=== PATIENT | male | born 1960 ===

== ENCOUNTER 2021-01-07 11:35 | Emergency (ER) | payer BC ==
[2021-01-07] MEDS ORDERED: Diphtheria,Pertussis(Acell),Tetanus Vaccine 0.5 ML Syringe IM ONE (12:29)
--- NOTE | 2021-01-07 12:56 | CR ---
INDICATION: Laceration and soft of the right thumb . Comparison: None. TECHNIQUE: Three-view study right thumb. FINDINGS: Laceration with multiple bone fragments identified involving the tuft of the terminal phalanx of the right thumb. No other abnormalities are identified. IMPRESSION: Multiple small bone fragments identified involving the tuft of the terminal phalanx of the right thumb with laceration. Dictated by Christine Rothman MD @ 01/07/2021 12:55:[address] Christine Rothman @ Jan 07 2021 12:55PM
[2021-01-07] MEDS ORDERED: Bupivacaine 0.5% 10 ML SDV INJECT ONE (13:43)
[2021-01-07] MEDS ORDERED: ceFAZolin 2 GM in Premix Bag 1 BAG IV ONE (13:55)
--- NOTE | 2021-01-07 14:20 | EDM.PDOC ---
ED HPI GENERAL MEDICAL PROBLEM - General Chief Complaint: Laceration Stated Complaint: CUT OFF RT HAND TIP OF THUMB Time Seen by Provider: 01/07/21 11:36 Source of Information: Reports: Patient History Limitations: Reports: No Limitations - History of Present Illness INITIAL COMMENTS - FREE TEXT/NARRATIVE: HISTORY AND PHYSICAL: History of present illness: Patient is a 60-year-old male who presents emergency room today with concern of right thumb injury that occurred just prior to arrival to the emergency room. Patient states that he was working with a piece of equipment at work when a heavy piece of metal fell off of the equipment and hit his right thumb. Patient states that the nail is completely gone and he was unable to find any of the tissue. Patient states he is unsure of his last tetanus update but would like to update this today. Patient denies any other symptoms or concerns. Patient denies fever, chills, chest pain, shortness of breath, or cough. Denies headache, neck stiff ness, change in vision, syncope, or near syncope. Denies nausea, vomiting, abdominal pain, diarrhea, constipation, or dysuria. Has not noted any blood in urine or stool. Patient has been eating and drinking appropriately. Review of systems: As per history of present illness and below otherwise all systems reviewed and negative. Past medical history: As per history of present illness and as reviewed below otherwise noncontributory. Surgical history: As per history of present illness and as reviewed below otherwise noncontributory. Social history: See social history for further information Family history: As per history of present illness and as reviewed below otherwise noncontributory. Physical exam: General: Patient is alert, oriented, and in no acute distress. Patient sitting comfortably on exam table. Vitals stable and reviewed by me. HEENT: Atraumatic, normocephalic, pupils equal and reactive bilaterally, negative for conjunctival pallor or scleral icterus, mucous membranes moist, TMs normal bilaterally, throat clear, neck supple, nontender, trachea midline. No drooling or trismus noted. No meningeal signs. No hot potato voice noted. Lungs: Clear to auscultation, breath sounds equal bilaterally, chest nontender. Heart: S1S2, regular rate and rhythm without overt murmur Abdomen: Soft, nondistended, nontender. Negative for masses or hepatospl enomegaly. Negative for costovertebral tenderness. Pelvis: Stable nontender. Genitourinary: Deferred. Rectal: Deferred. Skin: Intact, warm, dry. No lesions or rashes noted. Extremities: The nail of the right thumb is completely avulsed with macerated underlying tissue and an area of exposed bone 3-4mm exposed without any tissue available to cover the exposed bone. Patient does have limited ROM of the interphalangeal joint of the affected thumb but full ROM of remainder of RUE without deficit. Radial pulses grossly intact of the right upper extremity with capillary refill less than 2 seconds. Otherwise, atraumatic, negative for cords or calf pain. Neurovascular unremarkable. Neuro: Awake, alert, oriented. Cranial nerves II through XII unremarkable. Cerebellum unremarkable. Motor and sensory unremarkable throughout. Exam nonfocal. Notes: Patient is a 60-year-old male who presents emergency room today with concern of right thumb injury that occurred just prior to arrival to the emergency room. Upon arrival to the ED, patient is vitally stable and well-appearing on exam but is noted to have a completely avulsed nail of the right hand thumb with macerated surrounding tissue and an area of 3 mm of exposed bone. There is no surrounding tissue to cover the exposed bone. Patient does have limited range of motion of the interphalangeal joint of the affected thumb, unsure if this is due to pain or true deficit at this time. Patient otherwise has full range of motion of the complete right upper extremity neurovascularly intact. The area was cleansed with 500 cc of normal saline, and chlorhexidine solution. Sterile bulky dressing was applied by nursing staff. Patient's tetanus was updated and received 2 g of Ancef today in the emergency room. I did call and speak to the hand specialist on-call for [facility], Dr. Latif, and thoroughly discussed patient's case. He would like patient to be transferred to the emergency room. I did speak to Dr. Bejarano, emergency room provider, who is accepting of transfer. Patient would like to transfer via private vehicle. EMS transfer was offered to patient but he declines. All risks versus benefits discussed with patient and expresses understanding. Strict return precautions thoroughly discussed with patient. Discussed going directly to the emergency room at [facility] in [place] following discharge from the emergency room and to not eat or drink until he has seen Dr. Latif. Voices understanding and is agreeable to plan of care. Denies any further questions or concerns at this time. Diagnostics: Hand x-ray Therapeutics: Tdap, 2 g Ancef IV Prescription: None Impression: Open tuft fracture, right first digit Plan: Go straight to [facility] Emergency Room following discharge from ED. Do not eat or drink until you have seen the hand specialist Definitive disposition and diagnosis as appropriate pending reevaluation and review of above. Right Finger-Thumb Pain Score (Numeric/FACES): 5 - Related Data Allergies Allergy/AdvReac Type Severity Reaction Status Date / Time No Known Allergies Allergy Verified 05/22/19 13:36 Home Meds: Home Meds Glimepiride 2 mg PO BIDMEALS 05/19/14 [History] Pioglitazone HCl 45 mg PO DAILY 05/19/14 [History] Simvastatin [Zocor] 40 mg PO BEDTIME 05/19/14 [History] amLODIPine [Norvasc] 5 mg PO QAM 05/19/14 [History] Aspirin [Adult Low Dose Aspirin EC] 81 mg PO DAILY 05/15/19 [History] Insulin Degludec [Tresiba] 12 unit SQ QAM 05/15/19 [History] Lisinopril/Hydrochlorothiazide [Lisinopril-Hctz 20-25 mg Tab] 1 tab PO QAM 05/15/19 [History] sitaGLIPtin Phos/Metformin HCl [Janumet 50-1,000 MG] 1 tab PO BID 05/15/19 [History] Past Medical History HEENT History: Reports: Hard of Hearing, Other (See Below) Other HEENT History: uses reading glassinterclick, has right hearing aide Cardiovascular History: Reports: High Cholesterol, Hypertension Respiratory History: Reports: None Gastrointestinal History: Reports: None Genitourinary History: Reports: None Musculoskeletal History: Reports: Fracture, Osteoarthritis Other Musculoskeletal History: hx of fx arm and fingers, arthritis of knees Neurological History: Reports: None Psychiatric History: Reports: None Endocrine/Metabolic History: Reports: Diabetes, Type II, IDDM Hematologic History: Reports: None Dermatologic History: Reports: None - Infectious Disease History Infectious Disease History: Reports: Chicken Pox - Past Surgical History Head Surgeries/Procedures: Reports: None HEENT Surgical History: Reports: Oral Surgery, Tonsillectomy Other HEENT Surgeries/Procedures: has one upper dental implant GI Surgical History: Reports: Colonoscopy Musculoskeletal Surgical History: Reports: Arthroscopic Knee Social & Family History - Family History Family Medical History: Unobtainable - Tobacco Use Tobacco Use Status *Q: Never Tobacco User - Caffeine Use Caffeine Use: Reports: None - Recreational Drug Use Recreational Drug Use: No ED ROS GENERAL - Review of Systems Review Of Systems: Comprehensive ROS is negative, except as noted in HPI. ED EXAM, SKIN/RASH Exam: See Below (see dictation) Course - Vital Signs Last Recorded V/S: Last Vital Signs Temp 97.6 F 01/07/21 12:03 Pulse 76 01/07/21 12:03 Resp 18 01/07/21 12:03 BP 145/85 H 01/07/21 12:03 Pulse Ox 97 01/07/21 12:03 - Orders/Labs/Meds Orders: Active Orders 24 hr Category Date Time Status Vaccines to be Administered [RC] PER UNIT ROUTINE Care 01/07/21 12:29 Active ceFAZolin [Ancef 2 GM/50 ML] 2 gm Med 01/07/21 13:55 Active Premix Bag 1 bag IV ONETIME Medication Orders Cefazolin Sodium/Dextrose 2 gm (/ Premix) 50 mls @ 100 mls/hr IV ONETIME ONE Stop: 01/07/21 14:24 Meds: Medications Generic Name Dose Route Start Last Admin Trade Name Freq PRN Reason Stop Dose Admin Cefazolin Sodium/Dextrose 2 gm 50 mls @ 100 mls/hr 01/07/21 13:55 / Premix IV 01/07/21 14:24 ONETIME ONE Discontinued Medications Generic Name Dose Route Start Last Admin Trade Name Freq PRN Reason Stop Dose Admin Bupivacaine HCl 10 ml 01/07/21 13:43 Bupivacaine 0.5% 10 Ml Sdv INJECT 01/07/21 13:44 ONETIME ONE Diphtheria/Tetanus/Acell Pertussis 0.5 ml 01/07/21 12:29 01/07/21 12:43 Diphtheria,Pertussis(Acell),Tetanus Vaccine 0.5 Ml Syringe IM 01/07/21 12:30 0.5 ml .ONCE ONE Administration Lidocaine HCl 5 ml 01/07/21 12:27 01/07/21 12:43 Lidocaine 1% 5 Ml Sdv INJECT 01/07/21 12:28 5 ml ONETIME ONE Administration Departure - Departure Time of Disposition: 14:18 Disposition: DC/Tfer to Acute Hospital 02 Clinical Impression: Open fracture of tuft of distal phalanx of right thumb - Discharge Information Referrals: Jose Alfredo Cadet MD [Primary Care Provider] - Forms: ED Department Discharge Additional Instructions: Go straight to [facility] Emergency Room following discharge from ED. Do not eat or drink until you have seen the hand specialist [facility]: Emergency Department [address], [place] [address] Sepsis Event Note (ED) - Focused Exam Vital Signs: Vital Signs Temp Pulse Resp BP Pulse Ox 01/07/21 12:03 97.6 F 76 18 145/85 H 97 - My Orders Last 24 Hours: My Active Orders 01/07/21 12:29 Vaccines to be Administered [RC] PER UNIT ROUTINE 01/07/21 13:55 ceFAZolin [Ancef 2 GM/50 ML] 2 gm Premix Bag 1 bag IV ONETIME - Assessment/Plan Last 24 Hours: My Active Orders 01/07/21 12:29 Vaccines to be Administered [RC] PER UNIT ROUTINE 01/07/21 13:55 ceFAZolin [Ancef 2 GM/50 ML] 2 gm Premix Bag 1 bag IV ONETIME
[2021-01-07 14:56] VITALS: BP 152/96; PULSE 71
== END 2021-01-07 15:30 ==
LOC: MW.ED 11:35
DX: S62.521B Displaced fracture of distal phalanx of right thumb, initial encounter for open fracture (principal); E78.00 Pure hypercholesterolemia, unspecified; I10 Essential (primary) hypertension; M19.90 Unspecified osteoarthritis, unspecified site; E11.9 Type 2 diabetes mellitus without complications; Z23 Encounter for immunization; Z79.82 Long term (current) use of aspirin; Z79.4 Long term (current) use of insulin; Z79.899 Other long term (current) drug therapy; W20.8XXA Other cause of strike by thrown, projected or falling object, initial encounter; Y92.89 Other specified places as the place of occurrence of the external cause; Y99.0 Civilian activity done for income or pay
CPT/HCPCS: 73140; 82947; 90471; 90715; 96365; 99284; J0690; J3490

== ENCOUNTER 2021-01-10 15:10 | Observation (INO) | payer BC ==
[2021-01-10 16:19] LABS: BLOOD UREA NITROGEN,BUN 20 mg/dL (7.0-18.0); CARBON DIOXIDE,CO2 27.6 mmol/L (21.0-32.0); CHLORIDE,CL 96 mmol/L (98-107); GLUCOSE RANDOM 351 mg/dL (74-106); POTASSIUM,K 4.5 mmol/L (3.5-5.1); SODIUM,NA 133 mmol/L (136-148)
--- NOTE | 2021-01-10 16:27 | CT ---
INDICATION: Left-sided paresthesias. Ataxia. TECHNIQUE: Noncontrast axial images. Sagittal and coronal reconstructions. COMPARISON: None. FINDINGS: There is no abnormal intracranial mass effect or midline shift. No acute intracranial hemorrhage. Mild scattered subcortical white matter changes are likely the sequela chronic small vessel disease. No appreciable loss of the normal blankenship-white matter differentiation. CSF spaces are age-appropriate. No acute osseous abnormality. Visualized paranasal sinuses are clear other than a mucous retention cyst inferiorly in the left maxillary sinus. IMPRESSION: No CT evidence of an acute intracranial abnormality. Report called to Dr. Walker at 4:20 p.m. on 01/10/2021. Dictated by Kumar Rajput MD @ 01/10/2021 4:26:17 PM Please note that all CT scans at this facility use dose modulation, iterative reconstruction, and/or weight-based dosing when appropriate to reduce radiation dose to as low as reasonably achievable. Dictated by: Kumar Rajput MD @ 01/10/2021 16:27:03 (Electronically Signed)
--- NOTE | 2021-01-10 16:32 | CT ---
INDICATION: Left upper extremity ataxia, left-sided paresthesias. TECHNIQUE: After standard noncontrast head CT, high resolution axial CT images acquired through the head and neck following rapid intravenous administration of iodinated contrast. Multiplanar MIPS of cranial and cervical vasculature performed. FINDINGS: Noncontrast head CT: There is no intracranial hemorrhage or fluid collection. The blankenship-white matter differentiation is maintained. Brain parenchymal volume loss is noted. There are nonspecific white matter hypodensities commonly seen with cerebral small vessel disease. The ventricles are of normal morphology. The basal cisterns are clear. There is a small mucous retention cyst in the left maxillary sinus. CTA head: Calcified irregular atherosclerotic plaque is present around both carotid siphons and intracranial left vertebral artery without significant stenosis. There is no large vessel occlusion. No aneurysm or vascular malformation is identified. CTA neck: Carotid arteries: There are large atherosclerotic plaques in the proximal internal carotid arteries, right more than left. There is a mild stenosis of the proximal right ICA, less than 50 percent by NASCET criteria. There is no significant stenosis on the left. There is no evidence for dissection. Vertebral arteries: There is atherosclerotic plaque. There is no significant stenosis. There is no evidence for dissection. The soft tissues of the neck are within normal limits. The cervical spine is in normal alignment. Degenerative changes are noted in the cervical spine. The lung apices are clear. IMPRESSION: Intracranial and carotid atherosclerotic disease as described above with a mild stenosis of the proximal right ICA, less than 50 percent by NASCET criteria. No significant intracranial stenosis. No large vessel occlusion. Brijesh August MD [employer] [employer] [facility] [facility] [facility] Please note that all CT scans at this facility use dose modulation, iterative reconstruction, and/or weight-based dosing when appropriate to reduce radiation dose to as low as reasonably achievable. Dictated by Brijesh August MD @ 01/11/2021 8:05:[address] Brijesh August @ Jan 11 2021 8:05AM
[2021-01-10] MEDS ORDERED: Iopamidol 755 MG/ML 500 ML Multipack Bottle IVPUSH STA (17:00)
[2021-01-10] MEDS ORDERED: Aspirin 81 MG Tab.Chew PO ONE (17:34)
[2021-01-10] MEDS ORDERED: Clopidogrel 75 MG Tab PO ONE (17:34)
[2021-01-10] MEDS ORDERED: Lactated Ringers 1,000 ML IV SCH (18:00)
--- NOTE | 2021-01-10 18:10 | PCM.EKG ---
#1 Interpretation EKG Date: 01/10/21 Time: 15:35 Rhythm: NSR Rate (Beats/Min): 78 [place]: Normal P-Wave: Present QRS: Normal ST-T: Normal QT: Normal Comparison: No Change (06/05/18) EKG Interpretation Comments: Sinus Rhythm
[2021-01-10] MEDS ORDERED: Albuterol/Ipratropium 3.0-0.5 MG/3 ML Neb Soln NEB PRN (18:39)
[2021-01-10] MEDS ORDERED: Acetaminophen 325 MG Tab PO PRN (18:39)
[2021-01-10] MEDS ORDERED: Ondansetron 4 MG/2 ML SDV IVPUSH PRN (18:39)
[2021-01-10] MEDS ORDERED: Glucagon,Human Recombinant 1 MG Vial IM PRN (18:54)
[2021-01-10] MEDS ORDERED: 50% Dextrose in Water 50 ML Syringe IVPUSH PRN (18:54)
--- NOTE | 2021-01-10 18:58 | PCM.HP.2 ---
H&P History of Present Illness - General Date of Service: 01/10/21 Admit Problem/Dx: Admission Diagnosis/Problem Admission Diagnosis/Problem TIA, Transient ischemic attack - History of Present Illness Initial Comments - Free Text/Narative: Patient is 60-year-old man with a past medical history of diabetes mellitus, hyperlipidemia, hypertension who comes to the emergency department with a chief complaint of left-sided weakness. Per patient symptoms started approximately 4-1/2 hours prior to arrival to the ER. Patient states that he felt his left hand was numb and he was unable to to keep a grasp on his phone and was unable to answer the phone. Patient also had had some left tingling in his left lower extremity associated with some staggering walk. The patient states that since being here his symptoms have improved, the leg symptoms have almost resolved and the hand symptoms are getting better but he still feels numb and weak in his left hand. He states that in addition to this he has been experiencing a headache which is located on the right side of his head. He denies any head injury or loss of consciousness. He denies any use of blood thinners. He denies any blurry vision or loss of vision. He denies any diplopia. He states that he is never had a history of CVA. He denies any palpitations, chest pain, shortness of breath or syncope. The who is at bedside stated that he also had an episode of where he seemed to be confused so that is why they came to the emergency department. NIH of 1 was noted in the ER, patient was out of the TPA window and underwent stroke protocol. [id number] glucose was obtained which was normal. Will obtain CT head and CTA of the head and neck. Laboratory: CBC unremarkable. CMP reveals hyponatremia at 133, hypochloremia 96, mild elevation BUN at 20, hyperglycemia at 351, troponin was negative. TSH was normal. Covid was negative. CT head without contrast does not reveal any acute intracranial abnormality. CTA of the head and neck did not reveal any large vessel occlusion although it did show plaque formation involving both carotid bulbs and proximal ICAs, right worse than left but no significant stenosis or occlusion of major cervical vessels The case was discussed with neurology on-call at [facility] with Dr. Hall who recommended to admit the patient for further medical management and to start dual antiplatelet therapy along with regular stroke protocol of MRI brain, 2D echo permissive hypertension Maintain SBP >110-140 Maintain DBP 80-110 head Pain Score (Numeric/FACES): 7 - Related Data Allergies/Adverse Reactions: Allergies Allergy/AdvReac Type Severity Reaction Status Date / Time No Known Allergies Allergy Verified 05/22/19 13:36 Home Medications: Home Meds Glimepiride 2 mg PO BIDMEALS 05/19/14 [History] Pioglitazone HCl 45 mg PO DAILY 05/19/14 [History] Simvastatin [Zocor] 40 mg PO BEDTIME 05/19/14 [History] amLODIPine [Norvasc] 5 mg PO QAM 05/19/14 [History] Aspirin [Adult Low Dose Aspirin EC] 81 mg PO DAILY 05/15/19 [History] Insulin Degludec [Tresiba] 12 unit SQ QAM 05/15/19 [History] Lisinopril/Hydrochlorothiazide [Lisinopril-Hctz 20-25 mg Tab] 1 tab PO QAM 05/15/19 [History] sitaGLIPtin Phos/Metformin HCl [Janumet 50-1,000 MG] 1 tab PO BID 05/15/19 [History] Past Medical History HEENT History: Reports: Hard of Hearing, Other (See Below) Other HEENT History: [facility], has right hearing aide Cardiovascular History: Reports: High Cholesterol, Hypertension Respiratory History: Reports: None Gastrointestinal History: Reports: None Genitourinary History: Reports: None Musculoskeletal History: Reports: Fracture, Osteoarthritis Other Musculoskeletal History: hx of fx arm and fingers, arthritis of knees Neurological History: Reports: None Psychiatric History: Reports: None Endocrine/Metabolic History: Reports: Diabetes, Type II, IDDM Hematologic History: Reports: None Dermatologic History: Reports: None - Infectious Disease History Infectious Disease History: Reports: Chicken Pox - Past Surgical History Head Surgeries/Procedures: Reports: None HEENT Surgical History: Reports: Oral Surgery, Tonsillectomy Other HEENT Surgeries/Procedures: has one upper dental implant GI Surgical History: Reports: Colonoscopy Musculoskeletal Surgical History: Reports: Arthroscopic Knee Social & Family History - Family History Family Medical History: Unobtainable - Caffeine Use Caffeine Use: Reports: None H&P Review of Systems - Review of Systems: Review Of Systems: See Below General: Denies: Fever, Chills, Malaise HEENT: Denies: Contact Lenses, Dysphasia Cardiovascular: Denies: Chest Pain, Palpitations, Dyspnea on Exertion Gastrointestinal: Denies: Abdominal Pain, Anorexia, Black Stool Genitourinary: Denies: Dysuria, Frequency Musculoskeletal: Reports: Arm Pain, Joint Pain. Denies: Neck Pain, Shoulder Pain, Back Pain, Hand Pain, Foot Pain Skin: Denies: Cyanosis, Jaundice, Mottled Psychiatric: Denies: Confusion, Depression, Mood Lability, Anxiety, Homicidal Ideation, Hallucinations (Auditory) Neurological: Reports: Numbness, Paresthesia, Difficulty Walking, Weakness. Denies: Confusion, Dizziness, Pre-Existing Deficit, Trouble Speaking, Change in Speech Exam - Exam Exam: See Below - Vital Signs Vital Signs: Last Vital Signs Temp 36.1 C 01/10/21 15:30 Pulse 78 01/10/21 18:19 Resp 18 01/10/21 18:19 BP 158/101 H 01/10/21 18:19 Pulse Ox 96 01/10/21 18:19 Weight: 81.647 kg - Exam General: Alert, Oriented, Cooperative Neck: Supple, Trachea Midline Lungs: Clear to Auscultation, Normal Respiratory Effort Cardiovascular: Regular Rate, Regular Rhythm, Normal S1, Normal S2 GI/Abdominal Exam: Normal Bowel Sounds, Soft, Non-Tender Extremities: Normal Inspection, Normal Range of Motion Neurological: Cranial Nerves Intact, Normal Speech, Normal Tone Neuro Extensive - Mental Status: Alert, Oriented x3, Normal Mood/Affect, Normal Cognition, Memory Intact Neuro Extensive - Motor, Sensory, Reflexes: CN II-XII Intact, Abnormal Sensation, Motor/Sensory Deficits (left hand numbness, weakness) DTR: 3+: Patella (L), Patella (R) - Patient Data Lab Results Last 24 hrs: Laboratory Results - last 24 hr 01/10/21 01/10/21 01/10/21 Range/Units 15:37 15:37 15:41 WBC 7.01 (4.0-11.0) K/uL RBC 4.78 (4.50-5.90) M/uL Hgb 15.2 (13.0-17.0) g/dL Hct 41.5 (38.0-50.0) % MCV 86.8 (80.0-98.0) fL MCH 31.8 (27.0-32.0) pg MCHC 36.6 (31.0-37.0) g/dL RDW Std Deviation 44.0 (28.0-62.0) fl RDW Coeff of Lavon 14 (11.0-15.0) % Plt Count 358 (150-400) K/uL MPV 9.90 (7.40-12.00) fL Neut % (Auto) 69.9 (48.0-80.0) % Lymph % (Auto) 18.0 (16.0-40.0) % [place] % (Auto) 11.0 (0.0-15.0) % Eos % (Auto) 1.0 (0.0-7.0) % Baso % (Auto) 0.1 (0.0-1.5) % Neut # (Auto) 4.9 (1.4-5.7) K/uL Lymph # (Auto) 1.3 (0.6-2.4) K/uL [place] # (Auto) 0.8 (0.0-0.8) K/uL Eos # (Auto) 0.1 (0.0-0.7) K/uL Baso # (Auto) 0.0 (0.0-0.1) K/uL Nucleated RBC % 0.0 /100WBC Nucleated RBCs # 0 K/uL INR Sodium 133 L (136-148) mmol/L Potassium 4.5 (3.5-5.1) mmol/L Chloride 96 L (98-107) mmol/L Carbon Dioxide 27.6 (21.0-32.0) mmol/L BUN 20 H (7.0-18.0) mg/dL Creatinine 1.3 (0.8-1.3) mg/dL Est Cr Clr Drug Dosing TNP Estimated GFR (MDRD) 55.9 ml/min Glucose 351 H (74-106) mg/dL POC Glucose 285 H (70-99) mg/dL Calcium 8.7 (8.5-10.1) mg/dL Total Bilirubin 0.4 (0.2-1.0) mg/dL AST 26 (15-37) IU/L ALT 31 (14-63) IU/L Alkaline Phosphatase 61 (46-116) U/L Creatine Kinase 94 (26-308) U/L Troponin I < 0.050 (0.000-0.056) ng/mL Total Protein 7.8 (6.4-8.2) g/dL Albumin 3.7 (3.4-5.0) g/dL Globulin 4.1 H (2.6-4.0) g/dL Albumin/Globulin Ratio 0.9 (0.9-1.6) TSH, Ultra Sensitive 1.86 (0.36-3.74) uIU/mL SARS-CoV-2 RNA (ROSAURA) (NEGATIVE) 01/10/21 01/10/21 Range/Units 16:52 17:01 WBC (4.0-11.0) K/uL RBC (4.50-5.90) M/uL Hgb (13.0-17.0) g/dL Hct (38.0-50.0) % MCV (80.0-98.0) fL MCH (27.0-32.0) pg MCHC (31.0-37.0) g/dL RDW Std Deviation (28.0-62.0) fl RDW Coeff of Lavon (11.0-15.0) % Plt Count (150-400) K/uL MPV (7.40-12.00) fL Neut % (Auto) (48.0-80.0) % Lymph % (Auto) (16.0-40.0) % [place] % (Auto) (0.0-15.0) % Eos % (Auto) (0.0-7.0) % Baso % (Auto) (0.0-1.5) % Neut # (Auto) (1.4-5.7) K/uL Lymph # (Auto) (0.6-2.4) K/uL [place] # (Auto) (0.0-0.8) K/uL Eos # (Auto) (0.0-0.7) K/uL Baso # (Auto) (0.0-0.1) K/uL Nucleated RBC % /100WBC Nucleated RBCs # K/uL INR 0.95 Sodium (136-148) mmol/L Potassium (3.5-5.1) mmol/L Chloride (98-107) mmol/L Carbon Dioxide (21.0-32.0) mmol/L BUN (7.0-18.0) mg/dL Creatinine (0.8-1.3) mg/dL Est Cr Clr Drug Dosing Estimated GFR (MDRD) ml/min Glucose (74-106) mg/dL POC Glucose (70-99) mg/dL Calcium (8.5-10.1) mg/dL Total Bilirubin (0.2-1.0) mg/dL AST (15-37) IU/L ALT (14-63) IU/L Alkaline Phosphatase (46-116) U/L Creatine Kinase (26-308) U/L Troponin I (0.000-0.056) ng/mL Total Protein (6.4-8.2) g/dL Albumin (3.4-5.0) g/dL Globulin (2.6-4.0) g/dL Albumin/Globulin Ratio (0.9-1.6) TSH, Ultra Sensitive (0.36-3.74) uIU/mL SARS-CoV-2 RNA (ROSAURA) NEGATIVE (NEGATIVE) Result Diagrams: 01/10/21 15:37 01/10/21 15:37 Sepsis Event Note - Evaluation Sepsis Screening Result: No Definite Risk - Focused Exam Vital Signs: Vital Signs Temp Pulse Resp BP Pulse Ox 01/10/21 18:19 78 18 158/101 H 96 01/10/21 15:30 36.1 C 88 18 96 - Problem List (1) CVA (cerebral vascular accident) SNOMED Code(s): 245992178 ICD Code: I63.9 - CEREBRAL INFARCTION, UNSPECIFIED Status: Acute Current Visit: Yes (2) HTN (hypertension) SNOMED Code(s): 79816329 ICD Code: I10 - ESSENTIAL (PRIMARY) HYPERTENSION Status: Acute Current Visit: Yes (3) HLD (hyperlipidemia) SNOMED Code(s): 24814184 ICD Code: E78.5 - HYPERLIPIDEMIA, UNSPECIFIED Status: Acute Current Visit: Yes (4) Open fracture of tuft of distal phalanx of right thumb SNOMED Code(s): 577099981 ICD Code: S62.521B - DISP FX OF DISTAL PHALANX OF RIGHT THUMB, INIT FOR OPN FX Status: Acute Current Visit: No Problem List Initiated/Reviewed/Updated: Yes Orders Last 24hrs: Active Orders 24 hr Category Date Time Status Admission Status [Patient Status] [ADT] Stat ADT 01/10/21 17:20 Active Ambulate [RC] ASDIRECTED Care 01/10/21 18:39 Active Antiembolic Devices [RC] PER UNIT ROUTINE Care 01/10/21 18:44 Active Bedrest [RC] ASDIRECTED Care 01/10/21 17:57 Active Blood Glucose Check, Bedside [RC] WITHMEALSANDBED Care 01/10/21 18:39 Active NIH Stroke Scale [RC] STAT Care 01/10/21 15:00 Active Oxygen Therapy [RC] PRN Care 01/10/21 18:40 Active Pulse Oximetry [RC] PRN Care 01/10/21 18:41 Active RT Aerosol Therapy [RC] ASDIRECTED Care 01/10/21 18:44 Active Telemetry Monitoring [Cardiac Monitoring] [RC] Q8H Care 01/10/21 18:05 Active VTE/DVT Education [RC] PER UNIT ROUTINE Care 01/10/21 18:40 Active Vital Signs [RC] Q4H Care 01/10/21 18:40 Active PT Evaluation and Treatment [CONS] Routine Cons 01/10/21 18:57 Active Brain w wo Cont [MR] Routine Exams 01/10/21 18:50 Ordered Echo Comp wo Cont [US] Routine Exams 01/10/21 18:56 Ordered GLYCOSYLATED HEMOGLOBIN,HGBA1C [CHEM] Routine Lab 01/10/21 15:37 Received LIPID PANEL [CHEM] Routine Lab 01/10/21 15:37 Received Acetaminophen [TylenoL] Med 01/10/21 18:39 Active 650 mg PO Q4H PRN Albuterol/Ipratropium [DuoNeb 3.0-0.5 MG/3 ML] Med 01/10/21 18:39 Active 3 ml NEB Q4HRRT PRN Aspirin Med 01/11/21 09:00 Active 81 mg PO DAILY Clopidogrel [Plavix] Med 01/11/21 09:00 Active 75 mg PO DAILY Dextrose 50% in Water Med 01/10/21 18:54 Active 50 ml IVPUSH ASDIRECTED PRN Glucagon,Human Recombinant [GlucaGen] Med 01/10/21 18:54 Active 1 mg IM ASDIRECTED PRN Insulin Aspart [NovoLOG] Med 01/11/21 07:30 Active See Protocol SUBCUT TIDAC Lactated Ringers [Ringers, Lactated] 1,000 ml Med 01/10/21 18:45 Active IV ASDIRECTED Ondansetron [Zofran] Med 01/10/21 18:39 Active 4 mg IVPUSH Q4H PRN atorvaSTATin [Lipitor] Med 01/10/21 21:00 Active 80 mg PO BEDTIME Sequential Compression Device [OM.PC] Per Unit Routine Oth 01/10/21 18:42 Ordered Medication Orders Acetaminophen (Acetaminophen 325 Mg Tab) 650 mg PO Q4H PRN PRN Reason: Pain (Mild 1-3)/fever Albuterol/Ipratropium (Albuterol/Ipratropium 3.0-0.5 Mg/3 Ml Neb Soln) 3 ml NEB Q4HRRT PRN PRN Reason: Shortness Of Breath/wheezing Aspirin (Aspirin 81 Mg Tab.Chew) 81 mg PO DAILY [facility] Atorvastatin Calcium (Atorvastatin 40 Mg Tab) 80 mg PO BEDTIME [facility] Clopidogrel Bisulfate (Clopidogrel 75 Mg Tab) 75 mg PO DAILY [facility] Dextrose/Water (50% Dextrose In Water 50 Ml Syringe) 50 ml IVPUSH ASDIRECTED PRN PRN Reason: Hypoglycemia Glucagon (Glucagon,Human Recombinant 1 Mg Vial) 1 mg IM ASDIRECTED PRN PRN Reason: Hypoglycemia Lactated Ringer's (Ringers, Lactated) 1,000 mls @ 125 mls/hr IV ASDIRECTED [facility] Insulin Aspart (Insulin Aspart 100 Units/Ml 3 Ml Pen) 0 unit SUBCUT TIDAC [facility]; Protocol Ondansetron HCl (Ondansetron 4 Mg/2 Ml Sdv) 4 mg IVPUSH Q4H PRN PRN Reason: Nausea/Vomiting Assessment/Plan Comment:: 60-year-old male admitted for CVA work-up Patient continues to have left hand numbness and weakness although the weakness is improved since presentation, left leg weakness has resolved CT of the head and neck noted, Will obtain MRI brain as patient symptoms likely suggestive of stroke We will start patient on dual antiplatelet therapy We will start patient on high-dose atorvastatin 80 mg daily We will check patient's hemoglobin A1c, TSH, lipid panel We will obtain 2D echo We will consult physical therapy /Occupational Therapy Sliding scale insulin Heart healthy diet allow permissive hypertension for now Tylenol for headache Zio patch upon discharge
[2021-01-10 19:09] LABS: HEMOGLOBIN A1C 8.1 %
--- NOTE | 2021-01-10 19:45 | EDM.PDOC ---
ED HPI GENERAL MEDICAL PROBLEM - General Chief Complaint: General Stated Complaint: DISORINTATED, CLUMPSY, LIGHT HEADED Time Seen by Provider: 01/10/21 15:30 - History of Present Illness INITIAL COMMENTS - FREE TEXT/NARRATIVE: CHIEF COMPLAINT(S): Left-sided weakness HISTORY OF PRESENT ILLNESS: This is a 60-year-old man with a past medical history of diabetes mellitus, hyperlipidemia, hypertension who comes to the emergency department with a chief complaint of left-sided weakness. Per patient and at bedside approximately 4-1/2 hours prior to arrival he had multiple episodes of where he had numbness and weakness in his left upper extremity to where he was unable to grasp objects and had some left tingling in his left lower extremity associated with some staggering walk. The patient states that since being here his symptoms have improved. He states that in addition to this he has been experiencing a headache which is located on the right side of his head. He denies any head injury or loss of consciousness. He denies any use of blood thinners. He denies any blurry vision or loss of vision. He denies any diplopia. He states that he is never had a history of CVA. He denies any palpitations, chest pain, shortness of breath or syncope. The who is at bedside stated that he also had an episode of where he seemed to be confused so that is why they came to the emergency department. REVIEW OF SYSTEMS: Constitutional: Denies fever, chills. Eyes: Denies eye pain Ears, Nose, Mouth, & Throat: Denies earache Cardiovascular: Denies chest pain Respiratory: Denies shortness of breath Gastrointestinal: Denies Nausea, vomiting, diarrhea, hematochezia. Genitourinary: Denies hematuria Skin:Denies a rash MSK: Denies joint pain Neurological: Positive for right-sided headache, left hand weakness/numbness, left lower extremity numbness, trouble walking, confusion. Psychiatric: Denies depression PAST MEDICAL HISTORY: As per history of present illness and as reviewed below otherwise noncontributory. SURGICAL HISTORY: As per history of present illness and as reviewed below otherwise noncontributory. SOCIAL HISTORY: As per history of present illness and as reviewed below otherwise noncontributory. FAMILY HISTORY: As per history of present illness and as reviewed below otherwise noncontributory. EXAMINATION OF ORGAN SYSTEMS/BODY AREAS: Constitutional: Blood pressure with a systolic of 175. Heart rate 88, respiratory rate 18 with an oxygen saturation 96% on room air. Temperature 36.1 General: Elderly man who does not appear to be in acute distress Psychiatric: Appropriate mood and affect. Eyes: No scleral icterus or conjunctival erythema pupils are equal round and reactive to light. Extraocular movements intact. Vertical or horizontal nystagmus is not present ENMT: Moist mucous membranes. No pharyngeal erythema tongue protrudes midline. Facies are symmetrical. Cardiovascular: Regular, rate, and rhythm. No gallops, murmurs, or rubs. Bilateral upper extremity pulses symmetric and intact. No peripheral edema. No JVD. Respiratory: Lungs clear to auscultation bilaterally. No wheezes, rales, or rhonchi. Gastrointestinal: Soft, non-tender, non-distended. Normoactive bowel sounds Genitourinary: No suprapubic tenderness Musculoskeletal: Normal range of motion. Skin: No lesions or abrasions. The patient has a right thumb which is in a bandage. The bandage is clean, dry, intact Neurological: AOx4. CN grossly intact. Strength 5/5 in bilateral upper and lower extremity. Sensation is intact bilaterally in upper and lower extremity. Gait appears normal. Finger to nose, heel to ellsworth. Patient has some difficulty with rapid alternating movements of the left hand. NIH 1. MEDICAL DECISION MAKING AND COURSE IN THE ED WITH INTERPRETATION/REVIEW OF DIAGNOSTIC STUDIES: Is a 58-year-old man with a past medical history of diabetes mellitus, hyperlipidemia and hypertension who comes to the emergency department with complaint of left upper extremity weakness, numbness, left lower extremity numbness and trouble walking who currently has an NIH of 1 with an isolated dysmetria of the left upper extremity. At this time the patient is out of the TPA window however given his history is high risk for CVA. We will undergo a stroke work-up. [id number] glucose was obtained which was normal. Will obtain CT head and CTA of the head and neck. Will obtain laboratory analysis. Will place patient on desk monitor and pulse oximetry. Cardiac monitoring at this time did reveal sinus rhythm and pulse oximetry with good waveform was 96 tonight 97% on room air. Laboratory: CBC unremarkable. CMP reveals hyponatremia at 133, hypochloremia 96, mild elevation BUN at 20, hyperglycemia at 351, troponin was negative. TSH was normal. Covid was negative. The radiological images were viewed by myself along with reading the report from the radiologist. CT head without contrast does not reveal any acute intracranial abnormality. CTA of the head and neck did not reveal any large vessel occlusion. There is atherosclerotic changes. After imaging I did discuss results with the patient. At this time his NIH at this time was 0. I discussed that I like to speak with neurology. They were amenable to this plan. I contacted [facility] and spoke with Dr. Hall who gave the following recommendations. Neurology Recommendation: Start dual antiplatlet Medically maximize patient Obtain MRI Brain Obtain Echocardiogram Bedrest for 24 hours Maintain SBP >110-140 Maintain DBP 80-110 *Do not allow hypotension Keep patient hydrated I provided the patient with his first dose of aspirin and Plavix. At this time I did discuss this with the patient and family. I contacted our hospitalist who accepted the patient for admission. DISPOSITION: Patient admitted to the hospital in stable condition CONDITION: Fair PROCEDURES: Cardiac monitoring intubation, pulse oximetry interpretation FINAL IMPRESSION(S)/DIAGNOSES: 1. Acute transient ischemic attack Critical Care Procedure Note Authorized and performed by: Jimbo Walker M.D. Critical Care Time: 54 minutes Due to a high probability of clinically significant, life threatening deterior ation, the patient required my highest level of preparedness to intervene emergently and I personally spent this critical care time directly and personally managing the patient. This critical care time included obtaining a history, examining the patient, pulse oximetry; ordering and review of studies; arranging urgent treatment with development of a management plan; evaluation of a patients reponse to treatment; frequent assessment; and discussions with other providers. This critical care time was performed to assess and manage the high probability of imminent, life threatening deterioration that could result in multiorgan failure. It was exclusive of separate billable procedures and treating other patients. Please see MDM section and rest of the note for further information on patient a ssessment and treatment. Please see MDM section and rest of the note for further information on patient assessment and treatment. Jimbo Walker M.D. head Pain Score (Numeric/FACES): 7 - Related Data Allergies Allergy/AdvReac Type Severity Reaction Status Date / Time No Known Allergies Allergy Verified 05/22/19 13:36 Home Meds: Home Meds Glimepiride 2 mg PO BIDMEALS 05/19/14 [History] Pioglitazone HCl 45 mg PO DAILY 05/19/14 [History] Simvastatin [Zocor] 40 mg PO BEDTIME 05/19/14 [History] amLODIPine [Norvasc] 5 mg PO QAM 05/19/14 [History] Aspirin [Adult Low Dose Aspirin EC] 81 mg PO DAILY 05/15/19 [History] Insulin Degludec [Tresiba] 12 unit SQ QAM 05/15/19 [History] Lisinopril/Hydrochlorothiazide [Lisinopril-Hctz 20-25 mg Tab] 1 tab PO QAM 05/15/19 [History] sitaGLIPtin Phos/Metformin HCl [Janumet 50-1,000 MG] 1 tab PO BID 05/15/19 [History] Past Medical History HEENT History: Reports: Hard of Hearing, Other (See Below) Other HEENT History: uses reading CURRENT, has right hearing aide Cardiovascular History: Reports: High Cholesterol, Hypertension Respiratory History: Reports: None Gastrointestinal History: Reports: None Genitourinary History: Reports: None Musculoskeletal History: Reports: Fracture, Osteoarthritis Other Musculoskeletal History: hx of fx arm and fingers, arthritis of knees Neurological History: Reports: None Psychiatric History: Reports: None Endocrine/Metabolic History: Reports: Diabetes, Type II, IDDM Hematologic History: Reports: None Dermatologic History: Reports: None - Infectious Disease History Infectious Disease History: Reports: Chicken Pox - Past Surgical History Head Surgeries/Procedures: Reports: None HEENT Surgical History: Reports: Oral Surgery, Tonsillectomy Other HEENT Surgeries/Procedures: has one upper dental implant GI Surgical History: Reports: Colonoscopy Musculoskeletal Surgical History: Reports: Arthroscopic Knee Social & Family History - Family History Family Medical History: Unobtainable - Caffeine Use Caffeine Use: Reports: None ED ROS GENERAL - Review of Systems Review Of Systems: See Below ED EXAM, GENERAL - Physical Exam Exam: See Below Course - Vital Signs Last Recorded V/S: Last Vital Signs Temp 35.9 C L 01/10/21 19:45 Pulse 67 01/10/21 19:45 Resp 17 01/10/21 19:45 BP 165/98 H 01/10/21 19:45 Pulse Ox 95 01/10/21 19:45 - Orders/Labs/Meds Orders: Active Orders 24 hr Category Date Time Status Admission Status [Patient Status] [ADT] Stat ADT 01/10/21 17:20 Active Bedrest [RC] ASDIRECTED Care 01/10/21 17:57 Active Medication Orders Acetaminophen (Acetaminophen 325 Mg Tab) 650 mg PO Q4H PRN PRN Reason: Pain (Mild 1-3)/fever Albuterol/Ipratropium (Albuterol/Ipratropium 3.0-0.5 Mg/3 Ml Neb Soln) 3 ml NEB Q4HRRT PRN PRN Reason: Shortness Of Breath/wheezing Aspirin (Aspirin 81 Mg Tab.Chew) 81 mg PO DAILY [facility] Atorvastatin Calcium (Atorvastatin 40 Mg Tab) 80 mg PO BEDTIME [facility] Clopidogrel Bisulfate (Clopidogrel 75 Mg Tab) 75 mg PO DAILY [facility] Dextrose/Water (50% Dextrose In Water 50 Ml Syringe) 50 ml IVPUSH ASDIRECTED PRN PRN Reason: Hypoglycemia Glucagon (Glucagon,Human Recombinant 1 Mg Vial) 1 mg IM ASDIRECTED PRN PRN Reason: Hypoglycemia Lactated Ringer's (Ringers, Lactated) 1,000 mls @ 125 mls/hr IV ASDIRECTED [facility] Insulin Aspart (Insulin Aspart 100 Units/Ml 3 Ml Pen) 0 unit SUBCUT TIDAC [facility]; Protocol Ondansetron HCl (Ondansetron 4 Mg/2 Ml Sdv) 4 mg IVPUSH Q4H PRN PRN Reason: Nausea/Vomiting Labs: Laboratory Tests 01/10/21 01/10/21 01/10/21 Range/Units 15:37 15:37 15:37 WBC 7.01 (4.0-11.0) K/uL RBC 4.78 (4.50-5.90) M/uL Hgb 15.2 (13.0-17.0) g/dL Hct 41.5 (38.0-50.0) % MCV 86.8 (80.0-98.0) fL MCH 31.8 (27.0-32.0) pg MCHC 36.6 (31.0-37.0) g/dL RDW Std Deviation 44.0 (28.0-62.0) fl RDW Coeff of Lavon 14 (11.0-15.0) % Plt Count 358 (150-400) K/uL MPV 9.90 (7.40-12.00) fL Neut % (Auto) 69.9 (48.0-80.0) % Lymph % (Auto) 18.0 (16.0-40.0) % Mora % (Auto) 11.0 (0.0-15.0) % Eos % (Auto) 1.0 (0.0-7.0) % Baso % (Auto) 0.1 (0.0-1.5) % Neut # (Auto) 4.9 (1.4-5.7) K/uL Lymph # (Auto) 1.3 (0.6-2.4) K/uL Mora # (Auto) 0.8 (0.0-0.8) K/uL Eos # (Auto) 0.1 (0.0-0.7) K/uL Baso # (Auto) 0.0 (0.0-0.1) K/uL Nucleated RBC % 0.0 /100WBC Nucleated RBCs # 0 K/uL INR Sodium 133 L (136-148) mmol/L Potassium 4.5 (3.5-5.1) mmol/L Chloride 96 L (98-107) mmol/L Carbon Dioxide 27.6 (21.0-32.0) mmol/L BUN 20 H (7.0-18.0) mg/dL Creatinine 1.3 (0.8-1.3) mg/dL Est Cr Clr Drug Dosing TNP Estimated GFR (MDRD) 55.9 ml/min Glucose 351 H (74-106) mg/dL POC Glucose (70-99) mg/dL Hemoglobin A1c (4.5 - 6.2) % Calcium 8.7 (8.5-10.1) mg/dL Total Bilirubin 0.4 (0.2-1.0) mg/dL AST 26 (15-37) IU/L ALT 31 (14-63) IU/L Alkaline Phosphatase 61 (46-116) U/L Creatine Kinase 94 (26-308) U/L Troponin I < 0.050 (0.000-0.056) ng/mL Total Protein 7.8 (6.4-8.2) g/dL Albumin 3.7 (3.4-5.0) g/dL Globulin 4.1 H (2.6-4.0) g/dL Albumin/Globulin Ratio 0.9 (0.9-1.6) Triglycerides 171 (0-200) mg/dL Cholesterol 196 (50-200) mg/dL LDL Cholesterol, Calc 96 (60-180) mg/dL VLDL Cholesterol 34 (5-55) mg/dL HDL Cholesterol 66 H (40-60) mg/dL Cholesterol/HDL Ratio 3.0 L (3.3-6.0) TSH, Ultra Sensitive 1.86 (0.36-3.74) uIU/mL SARS-CoV-2 RNA ([facility]) (NEGATIVE) 01/10/21 01/10/21 01/10/21 Range/Units 15:37 15:41 16:52 WBC (4.0-11.0) K/uL RBC (4.50-5.90) M/uL Hgb (13.0-17.0) g/dL Hct (38.0-50.0) % MCV (80.0-98.0) fL MCH (27.0-32.0) pg MCHC (31.0-37.0) g/dL RDW Std Deviation (28.0-62.0) fl RDW Coeff of Lavon (11.0-15.0) % Plt Count (150-400) K/uL MPV (7.40-12.00) fL Neut % (Auto) (48.0-80.0) % Lymph % (Auto) (16.0-40.0) % Mora % (Auto) (0.0-15.0) % Eos % (Auto) (0.0-7.0) % Baso % (Auto) (0.0-1.5) % Neut # (Auto) (1.4-5.7) K/uL Lymph # (Auto) (0.6-2.4) K/uL Mora # (Auto) (0.0-0.8) K/uL Eos # (Auto) (0.0-0.7) K/uL Baso # (Auto) (0.0-0.1) K/uL Nucleated RBC % /100WBC Nucleated RBCs # K/uL INR Sodium (136-148) mmol/L Potassium (3.5-5.1) mmol/L Chloride (98-107) mmol/L Carbon Dioxide (21.0-32.0) mmol/L BUN (7.0-18.0) mg/dL Creatinine (0.8-1.3) mg/dL Est Cr Clr Drug Dosing Estimated GFR (MDRD) ml/min Glucose (74-106) mg/dL POC Glucose 285 H (70-99) mg/dL Hemoglobin A1c 8.1 H (4.5 - 6.2) % Calcium (8.5-10.1) mg/dL Total Bilirubin (0.2-1.0) mg/dL AST (15-37) IU/L ALT (14-63) IU/L Alkaline Phosphatase (46-116) U/L Creatine Kinase (26-308) U/L Troponin I (0.000-0.056) ng/mL Total Protein (6.4-8.2) g/dL Albumin (3.4-5.0) g/dL Globulin (2.6-4.0) g/dL Albumin/Globulin Ratio (0.9-1.6) Triglycerides (0-200) mg/dL Cholesterol (50-200) mg/dL LDL Cholesterol, Calc (60-180) mg/dL VLDL Cholesterol (5-55) mg/dL HDL Cholesterol (40-60) mg/dL Cholesterol/HDL Ratio (3.3-6.0) TSH, Ultra Sensitive (0.36-3.74) uIU/mL SARS-CoV-2 RNA ([facility]) NEGATIVE (NEGATIVE) 01/10/21 Range/Units 17:01 WBC (4.0-11.0) K/uL RBC (4.50-5.90) M/uL Hgb (13.0-17.0) g/dL Hct (38.0-50.0) % MCV (80.0-98.0) fL MCH (27.0-32.0) pg MCHC (31.0-37.0) g/dL RDW Std Deviation (28.0-62.0) fl RDW Coeff of Lavon (11.0-15.0) % Plt Count (150-400) K/uL MPV (7.40-12.00) fL Neut % (Auto) (48.0-80.0) % Lymph % (Auto) (16.0-40.0) % Mora % (Auto) (0.0-15.0) % Eos % (Auto) (0.0-7.0) % Baso % (Auto) (0.0-1.5) % Neut # (Auto) (1.4-5.7) K/uL Lymph # (Auto) (0.6-2.4) K/uL Mora # (Auto) (0.0-0.8) K/uL Eos # (Auto) (0.0-0.7) K/uL Baso # (Auto) (0.0-0.1) K/uL Nucleated RBC % /100WBC Nucleated RBCs # K/uL INR 0.95 Sodium (136-148) mmol/L Potassium (3.5-5.1) mmol/L Chloride (98-107) mmol/L Carbon Dioxide (21.0-32.0) mmol/L BUN (7.0-18.0) mg/dL Creatinine (0.8-1.3) mg/dL Est Cr Clr Drug Dosing Estimated GFR (MDRD) ml/min Glucose (74-106) mg/dL POC Glucose (70-99) mg/dL Hemoglobin A1c (4.5 - 6.2) % Calcium (8.5-10.1) mg/dL Total Bilirubin (0.2-1.0) mg/dL AST (15-37) IU/L ALT (14-63) IU/L Alkaline Phosphatase (46-116) U/L Creatine Kinase (26-308) U/L Troponin I (0.000-0.056) ng/mL Total Protein (6.4-8.2) g/dL Albumin (3.4-5.0) g/dL Globulin (2.6-4.0) g/dL Albumin/Globulin Ratio (0.9-1.6) Triglycerides (0-200) mg/dL Cholesterol (50-200) mg/dL LDL Cholesterol, Calc (60-180) mg/dL VLDL Cholesterol (5-55) mg/dL HDL Cholesterol (40-60) mg/dL Cholesterol/HDL Ratio (3.3-6.0) TSH, Ultra Sensitive (0.36-3.74) uIU/mL SARS-CoV-2 RNA ([facility]) (NEGATIVE) Meds: Medications Generic Name Dose Route Start Last Admin Trade Name Freq PRN Reason Stop Dose Admin Acetaminophen 650 mg 01/10/21 18:39 Acetaminophen 325 Mg Tab PO Q4H PRN Pain (Mild 1-3)/fever Albuterol/Ipratropium 3 ml 01/10/21 18:39 Albuterol/Ipratropium 3.0-0.5 Mg/3 Ml Neb Soln NEB Q4HRRT PRN Shortness Of Breath/wheezing Aspirin 81 mg 01/11/21 09:00 Aspirin 81 Mg Tab.Chew PO DAILY [facility] Atorvastatin Calcium 80 mg 01/10/21 21:00 Atorvastatin 40 Mg Tab PO BEDTIME [facility] Clopidogrel Bisulfate 75 mg 01/11/21 09:00 Clopidogrel 75 Mg Tab PO DAILY [facility] Dextrose/Water 50 ml 01/10/21 18:54 50% Dextrose In Water 50 Ml Syringe IVPUSH ASDIRECTED PRN Hypoglycemia Glucagon 1 mg 01/10/21 18:54 Glucagon,Human Recombinant 1 Mg Vial IM ASDIRECTED PRN Hypoglycemia Lactated Ringer's 1,000 mls @ 125 mls/hr 01/10/21 18:45 Ringers, Lactated IV ASDIRECTED [facility] Insulin Aspart 0 unit 01/11/21 07:30 Insulin Aspart 100 Units/Ml 3 Ml Pen SUBCUT TIDAC [facility] Protocol Ondansetron HCl 4 mg 01/10/21 18:39 Ondansetron 4 Mg/2 Ml Sdv IVPUSH Q4H PRN Nausea/Vomiting Discontinued Medications Generic Name Dose Route Start Last Admin Trade Name Freq PRN Reason Stop Dose Admin Aspirin 324 mg 01/10/21 17:34 01/10/21 17:48 Aspirin 81 Mg Tab.Chew PO 01/10/21 17:35 324 mg ONETIME ONE Administration Clopidogrel Bisulfate 75 mg 01/10/21 17:34 01/10/21 17:48 Clopidogrel 75 Mg Tab PO 01/10/21 17:35 75 mg ONETIME ONE Administration Lactated Ringer's 1,000 mls @ 150 mls/hr 01/10/21 18:00 Ringers, Lactated IV ASDIRECTED [facility] Iopamidol 100 ml 01/10/21 17:00 01/10/21 17:01 Iopamidol 755 Mg/Ml 500 Ml Multipack Bottle IVPUSH 01/10/21 17:01 100 ml ONETIME STA Administration Departure - Departure Time of Disposition: 17:20 Disposition: Admitted As Inpatient 64 Clinical Impression: TIA (transient ischemic attack) - Discharge Information Sepsis Event Note (ED) - Evaluation Sepsis Screening Result: No Definite Risk - Focused Exam Vital Signs: Vital Signs Temp Pulse Resp Pulse Ox 01/10/21 15:30 36.1 C 88 18 96 - My Orders Last 24 Hours: My Active Orders 01/10/21 17:20 Admission Status [Patient Status] [ADT] Stat 01/10/21 17:57 Bedrest [RC] ASDIRECTED - Assessment/Plan Last 24 Hours: My Active Orders 01/10/21 17:20 Admission Status [Patient Status] [ADT] Stat 01/10/21 17:57 Bedrest [RC] ASDIRECTED
[2021-01-10] MEDS ORDERED: atorvaSTATin 40 MG Tab PO SCH (21:00)
[2021-01-10] MEDS: Lactated Ringers 1,000 ML IV SCH (21:57)
[2021-01-10] MEDS ORDERED: Insulin Aspart 100 Units/ML 3 ML Pen SUBCUT ONE (23:17)
[2021-01-10] MEDS ORDERED: Insulin Aspart 100 Units/ML 3 ML Pen ONE (23:21)
[2021-01-10] MEDS ORDERED: Labetalol 100 MG/20 ML MDV IVPUSH PRN (23:45)
[2021-01-11] MEDS: Lactated Ringers 1,000 ML IV SCH (05:49)
[2021-01-11] MEDS ORDERED: Gadobenate Dimeglumine 529 MG/ML 20 ML SDV IVPUSH STA (07:20)
[2021-01-11] MEDS ORDERED: Clopidogrel 75 MG Tab PO SCH (09:00)
[2021-01-11] MEDS ORDERED: Aspirin 81 MG Tab.Chew PO SCH (09:00)
--- NOTE | 2021-01-11 09:14 | MR ---
INDICATION: Left arm weakness. Suspect CVA. TECHNIQUE: Sagittal T1, axial FLAIR, axial and coronal T2 susceptibility weighted, diffusion-weighted and gadolinium enhanced axial and coronal T1 weighted images. COMPARISON: Prior MRI brain dated 07/24/2014. FINDINGS: There is a small focus of diffusion restriction with corresponding FLAIR/T2 hyperintensity within the superior lateral right frontal lobe/middle frontal gyrus consistent with recent ischemic infarction. This area measures approximately 2 cm x 1 cm. There is no associated hemorrhage or mass effect. No other areas of diffusion restriction are seen. No evidence of intracranial hemorrhage. Few tiny nonenhancing foci of FLAIR hyperintensity within bilateral cerebral white matter consistent with mild chronic microvascular ischemia. No enhancing intra-axial or extra-axial lesion. The brainstem and cerebellum appear normal. The orbits, sella turcica and skullbase unremarkable. Inflammatory retention cysts at the base the left maxillary sinus and mild mucosal thickening in both maxillary and sphenoid sinuses. IMPRESSION: 1. Small area of recent cortical based infarction in the right middle frontal gyrus without hemorrhage or mass effect. 2. Mild chronic microvascular ischemic changes within bilateral cerebral white matter. Dictated by Star Solano MD @ 01/11/2021 9:13:[address] Star Solano @ Jan 11 2021 9:13AM
[2021-01-11] MEDS: Insulin Aspart 100 Units/ML 3 ML Pen SUBCUT SCH ×2 (09:46→12:52)
[2021-01-11] MEDS ORDERED: Cephalexin 500 MG Cap PO SCH (14:00)
--- NOTE | 2021-01-11 15:17 | PCM.DCSUM1 ---
Discharge Summary - Hospital Course Free Text/Narrative:: Patient is 60-year-old man with a past medical history of diabetes mellitus, hyperlipidemia, hypertension who comes to the emergency department with a chief complaint of left-sided weakness. Per patient symptoms started approximately 4-1/2 hours prior to arrival to the ER. Patient states that he felt his left hand was numb and he was unable to to keep a grasp on his phone and was unable to answer the phone. Patient also had had some left tingling in his left lower extremity associated with some staggering walk. The patient states that since being here his symptoms have improved, the leg symptoms have almost resolved and the hand symptoms are getting better but he still feels numb and weak in his left hand. He states that in addition to this he has been experiencing a headache which is located on the right side of his head. He denies any head injury or loss of consciousness. He denies any use of blood thinners. He denies any blurry vision or loss of vision. He denies any diplopia. He states that he is never had a history of CVA. He denies any palpitations, chest pain, shortness of breath or syncope. The who is at bedside stated that he also had an episode of where he seemed to be confused so that is why they came to the emergency department. NIH of 1 was noted in the ER, patient was out of the TPA window and underwent stroke protocol. [id number]-[id number] glucose was obtained which was normal. Will obtain CT head and CTA of the head and neck. Laboratory: CBC unremarkable. CMP reveals hyponatremia at 133, hypochloremia 96, mild elevation BUN at 20, hyperglycemia at 351, troponin was negative. TSH was normal. Covid was negative. CT head without contrast does not reveal any acute intracranial abnormality. CTA of the head and neck did not reveal any large vessel occlusion although it did show large plaque formation involving both carotid bulbs and proximal ICAs, right worse than left but no significant stenosis or occlusion of major cervical vessels The case was discussed with neurology on-call at [facility] with Dr. Hall who recommended to admit the patient for further medical management and to start dual antiplatelet therapy along with regular stroke protocol of MRI brain, 2D echo permissive hypertension. Patient was admitted to hospital for further management, permissive hypertension was allowed, patient was started on aspirin as well as Plavix, MRI of the brain was done which showed Refractory small area of recent cortical- based infarction in the right middle frontal gyrus without hemorrhage or mass- effect, mild chronic microvascular ischemic changes within bilateral cerebral white matter. Physical therapy was consulted as well which recommended outpatient PT as well as occupational therapy for the right hand. Patient was hemodynamically stable and recommended to follow-up with neurology as well as primary care upon discharge. Patient was also counseled about his diabetes given that he is on several oral hypoglycemic it was recommended it might be better to be on mealtim e insulin but that management would be deferred to patient's primary care physician. - Discharge Data Discharge Date: 01/11/21 Discharge Disposition: Home, Self-Care 01 Condition: Fair - Referral to Home Health Primary Care Physician: PCP None - Discharge Diagnosis/Problem(s) (1) CVA (cerebral vascular accident) SNOMED Code(s): 732355981 ICD Code: I63.9 - CEREBRAL INFARCTION, UNSPECIFIED Status: Acute Current Visit: Yes (2) HTN (hypertension) SNOMED Code(s): 63706875 ICD Code: I10 - ESSENTIAL (PRIMARY) HYPERTENSION Status: Acute Current Visit: Yes (3) HLD (hyperlipidemia) SNOMED Code(s): 91056461 ICD Code: E78.5 - HYPERLIPIDEMIA, UNSPECIFIED Status: Acute Current Visit: Yes (4) Open fracture of tuft of distal phalanx of right thumb SNOMED Code(s): 199024898 ICD Code: S62.521B - DISP FX OF DISTAL PHALANX OF RIGHT THUMB, INIT FOR OPN FX Status: Acute Current Visit: No - Patient Summary/Data Consults: Consultations 01/10/21 18:57 PT Evaluation and Treatment [CONS] Routine - Discharge Plan Prescriptions/Med Rec: atorvaSTATin [Lipitor] 80 mg PO BEDTIME #30 tablet Clopidogrel [Plavix] 75 mg PO DAILY #30 tablet Home Medications: Home Meds Glimepiride 2 mg PO BIDMEALS 05/19/14 [History] Pioglitazone HCl 45 mg PO DAILY 05/19/14 [History] Simvastatin [Zocor] 40 mg PO BEDTIME 05/19/14 [History] amLODIPine [Norvasc] 5 mg PO QAM 05/19/14 [History] Aspirin [Adult Low Dose Aspirin EC] 81 mg PO DAILY 05/15/19 [History] Insulin Degludec [Tresiba] 12 unit SQ QAM 05/15/19 [History] Lisinopril/Hydrochlorothiazide [Lisinopril-Hctz 20-25 mg Tab] 20 - 25 mg PO QAM 05/15/19 [History] Clopidogrel [Plavix] 75 mg PO DAILY #30 tablet 01/11/21 [Rx] atorvaSTATin [Lipitor] 80 mg PO BEDTIME #30 tablet 01/11/21 [Rx] cephALEXin [Cephalexin] 500 mg PO TID 01/11/21 [History] oxyCODONE HCl/Acetaminophen [Oxycodone-Acetaminophen 5-325] 5 - 325 mg PO Q6H PRN 01/11/21 [History] sitaGLIPtin Phos/Metformin HCl [Janumet 50-1,000 MG] 50 - 1,000 mg PO BIDMEALS 01/11/21 [History] Patient Handouts: Transient Ischemic Attack, [id number], Clopidogrel tablets, Atorvastatin tablets Referrals: Nevaeh Ziegler MD [Physician] - Manuel Winn MD [Resident] - 01/21/21 2:00 pm - Discharge Summary/Plan Comment DC Time >30 min.: No Total # of Minutes for Discharge Time: 20 minutes - Patient Data Vitals - Most Recent: Last Vital Signs Temp 35.4 C L 01/11/21 11:32 Pulse 73 01/11/21 11:32 Resp 20 01/11/21 11:32 BP 158/96 H 01/11/21 11:32 Pulse Ox 97 01/11/21 11:32 Weight - Most Recent: 81.647 kg I&O - Last 24 hours: Intake & Output 01/11/21 01/11/21 01/11/21 06:59 14:59 22:59 Intake Total 850 Output Total 720 Balance 130 Lab Results - Last 24 hrs: Laboratory Results - last 24 hr 01/10/21 01/10/21 01/10/21 Range/Units 15:37 15:37 15:37 WBC 7.01 (4.0-11.0) K/uL RBC 4.78 (4.50-5.90) M/uL Hgb 15.2 (13.0-17.0) g/dL Hct 41.5 (38.0-50.0) % MCV 86.8 (80.0-98.0) fL MCH 31.8 (27.0-32.0) pg MCHC 36.6 (31.0-37.0) g/dL RDW Std Deviation 44.0 (28.0-62.0) fl RDW Coeff of Lavon 14 (11.0-15.0) % Plt Count 358 (150-400) K/uL MPV 9.90 (7.40-12.00) fL Neut % (Auto) 69.9 (48.0-80.0) % Lymph % (Auto) 18.0 (16.0-40.0) % Gila % (Auto) 11.0 (0.0-15.0) % Eos % (Auto) 1.0 (0.0-7.0) % Baso % (Auto) 0.1 (0.0-1.5) % Neut # (Auto) 4.9 (1.4-5.7) K/uL Lymph # (Auto) 1.3 (0.6-2.4) K/uL Gila # (Auto) 0.8 (0.0-0.8) K/uL Eos # (Auto) 0.1 (0.0-0.7) K/uL Baso # (Auto) 0.0 (0.0-0.1) K/uL Nucleated RBC % 0.0 /100WBC Nucleated RBCs # 0 K/uL INR Sodium 133 L (136-148) mmol/L Potassium 4.5 (3.5-5.1) mmol/L Chloride 96 L (98-107) mmol/L Carbon Dioxide 27.6 (21.0-32.0) mmol/L BUN 20 H (7.0-18.0) mg/dL Creatinine 1.3 (0.8-1.3) mg/dL Est Cr Clr Drug Dosing TNP Estimated GFR (MDRD) 55.9 ml/min Glucose 351 H (74-106) mg/dL POC Glucose (70-99) mg/dL Hemoglobin A1c (4.5 - 6.2) % Calcium 8.7 (8.5-10.1) mg/dL Total Bilirubin 0.4 (0.2-1.0) mg/dL AST 26 (15-37) IU/L ALT 31 (14-63) IU/L Alkaline Phosphatase 61 (46-116) U/L Creatine Kinase 94 (26-308) U/L Troponin I < 0.050 (0.000-0.056) ng/mL Total Protein 7.8 (6.4-8.2) g/dL Albumin 3.7 (3.4-5.0) g/dL Globulin 4.1 H (2.6-4.0) g/dL Albumin/Globulin Ratio 0.9 (0.9-1.6) Triglycerides 171 (0-200) mg/dL Cholesterol 196 (50-200) mg/dL LDL Cholesterol, Calc 96 (60-180) mg/dL VLDL Cholesterol 34 (5-55) mg/dL HDL Cholesterol 66 H (40-60) mg/dL Cholesterol/HDL Ratio 3.0 L (3.3-6.0) TSH, Ultra Sensitive 1.86 (0.36-3.74) uIU/mL SARS-CoV-2 RNA (ROSAURA) (NEGATIVE) 01/10/21 01/10/21 01/10/21 Range/Units 15:37 15:41 16:52 WBC (4.0-11.0) K/uL RBC (4.50-5.90) M/uL Hgb (13.0-17.0) g/dL Hct (38.0-50.0) % MCV (80.0-98.0) fL MCH (27.0-32.0) pg MCHC (31.0-37.0) g/dL RDW Std Deviation (28.0-62.0) fl RDW Coeff of Lavon (11.0-15.0) % Plt Count (150-400) K/uL MPV (7.40-12.00) fL Neut % (Auto) (48.0-80.0) % Lymph % (Auto) (16.0-40.0) % Gila % (Auto) (0.0-15.0) % Eos % (Auto) (0.0-7.0) % Baso % (Auto) (0.0-1.5) % Neut # (Auto) (1.4-5.7) K/uL Lymph # (Auto) (0.6-2.4) K/uL Gila # (Auto) (0.0-0.8) K/uL Eos # (Auto) (0.0-0.7) K/uL Baso # (Auto) (0.0-0.1) K/uL Nucleated RBC % /100WBC Nucleated RBCs # K/uL INR Sodium (136-148) mmol/L Potassium (3.5-5.1) mmol/L Chloride (98-107) mmol/L Carbon Dioxide (21.0-32.0) mmol/L BUN (7.0-18.0) mg/dL Creatinine (0.8-1.3) mg/dL Est Cr Clr Drug Dosing Estimated GFR (MDRD) ml/min Glucose (74-106) mg/dL POC Glucose 285 H (70-99) mg/dL Hemoglobin A1c 8.1 H (4.5 - 6.2) % Calcium (8.5-10.1) mg/dL Total Bilirubin (0.2-1.0) mg/dL AST (15-37) IU/L ALT (14-63) IU/L Alkaline Phosphatase (46-116) U/L Creatine Kinase (26-308) U/L Troponin I (0.000-0.056) ng/mL Total Protein (6.4-8.2) g/dL Albumin (3.4-5.0) g/dL Globulin (2.6-4.0) g/dL Albumin/Globulin Ratio (0.9-1.6) Triglycerides (0-200) mg/dL Cholesterol (50-200) mg/dL LDL Cholesterol, Calc (60-180) mg/dL VLDL Cholesterol (5-55) mg/dL HDL Cholesterol (40-60) mg/dL Cholesterol/HDL Ratio (3.3-6.0) TSH, Ultra Sensitive (0.36-3.74) uIU/mL SARS-CoV-2 RNA (ROSAURA) NEGATIVE (NEGATIVE) 01/10/21 01/10/21 01/11/21 Range/Units 17:01 23:08 09:34 WBC (4.0-11.0) K/uL RBC (4.50-5.90) M/uL Hgb (13.0-17.0) g/dL Hct (38.0-50.0) % MCV (80.0-98.0) fL MCH (27.0-32.0) pg MCHC (31.0-37.0) g/dL RDW Std Deviation (28.0-62.0) fl RDW Coeff of Lavon (11.0-15.0) % Plt Count (150-400) K/uL MPV (7.40-12.00) fL Neut % (Auto) (48.0-80.0) % Lymph % (Auto) (16.0-40.0) % Gila % (Auto) (0.0-15.0) % Eos % (Auto) (0.0-7.0) % Baso % (Auto) (0.0-1.5) % Neut # (Auto) (1.4-5.7) K/uL Lymph # (Auto) (0.6-2.4) K/uL Gila # (Auto) (0.0-0.8) K/uL Eos # (Auto) (0.0-0.7) K/uL Baso # (Auto) (0.0-0.1) K/uL Nucleated RBC % /100WBC Nucleated RBCs # K/uL INR 0.95 Sodium (136-148) mmol/L Potassium (3.5-5.1) mmol/L Chloride (98-107) mmol/L Carbon Dioxide (21.0-32.0) mmol/L BUN (7.0-18.0) mg/dL Creatinine (0.8-1.3) mg/dL Est Cr Clr Drug Dosing Estimated GFR (MDRD) ml/min Glucose (74-106) mg/dL POC Glucose 225 H 201 H (70-99) mg/dL Hemoglobin A1c (4.5 - 6.2) % Calcium (8.5-10.1) mg/dL Total Bilirubin (0.2-1.0) mg/dL AST (15-37) IU/L ALT (14-63) IU/L Alkaline Phosphatase (46-116) U/L Creatine Kinase (26-308) U/L Troponin I (0.000-0.056) ng/mL Total Protein (6.4-8.2) g/dL Albumin (3.4-5.0) g/dL Globulin (2.6-4.0) g/dL Albumin/Globulin Ratio (0.9-1.6) Triglycerides (0-200) mg/dL Cholesterol (50-200) mg/dL LDL Cholesterol, Calc (60-180) mg/dL VLDL Cholesterol (5-55) mg/dL HDL Cholesterol (40-60) mg/dL Cholesterol/HDL Ratio (3.3-6.0) TSH, Ultra Sensitive (0.36-3.74) uIU/mL SARS-CoV-2 RNA (ROSAURA) (NEGATIVE) 01/11/21 Range/Units 11:27 WBC (4.0-11.0) K/uL RBC (4.50-5.90) M/uL Hgb (13.0-17.0) g/dL Hct (38.0-50.0) % MCV (80.0-98.0) fL MCH (27.0-32.0) pg MCHC (31.0-37.0) g/dL RDW Std Deviation (28.0-62.0) fl RDW Coeff of Lavon (11.0-15.0) % Plt Count (150-400) K/uL MPV (7.40-12.00) fL Neut % (Auto) (48.0-80.0) % Lymph % (Auto) (16.0-40.0) % Gila % (Auto) (0.0-15.0) % Eos % (Auto) (0.0-7.0) % Baso % (Auto) (0.0-1.5) % Neut # (Auto) (1.4-5.7) K/uL Lymph # (Auto) (0.6-2.4) K/uL Gila # (Auto) (0.0-0.8) K/uL Eos # (Auto) (0.0-0.7) K/uL Baso # (Auto) (0.0-0.1) K/uL Nucleated RBC % /100WBC Nucleated RBCs # K/uL INR Sodium (136-148) mmol/L Potassium (3.5-5.1) mmol/L Chloride (98-107) mmol/L Carbon Dioxide (21.0-32.0) mmol/L BUN (7.0-18.0) mg/dL Creatinine (0.8-1.3) mg/dL Est Cr Clr Drug Dosing Estimated GFR (MDRD) ml/min Glucose (74-106) mg/dL POC Glucose 261 H (70-99) mg/dL Hemoglobin A1c (4.5 - 6.2) % Calcium (8.5-10.1) mg/dL Total Bilirubin (0.2-1.0) mg/dL AST (15-37) IU/L ALT (14-63) IU/L Alkaline Phosphatase (46-116) U/L Creatine Kinase (26-308) U/L Troponin I (0.000-0.056) ng/mL Total Protein (6.4-8.2) g/dL Albumin (3.4-5.0) g/dL Globulin (2.6-4.0) g/dL Albumin/Globulin Ratio (0.9-1.6) Triglycerides (0-200) mg/dL Cholesterol (50-200) mg/dL LDL Cholesterol, Calc (60-180) mg/dL VLDL Cholesterol (5-55) mg/dL HDL Cholesterol (40-60) mg/dL Cholesterol/HDL Ratio (3.3-6.0) TSH, Ultra Sensitive (0.36-3.74) uIU/mL SARS-CoV-2 RNA ([facility]A) (NEGATIVE) Med Orders - Current: Current Medications Acetaminophen (Acetaminophen 325 Mg Tab) 650 mg PO Q4H PRN PRN Reason: Pain (Mild 1-3)/fever Last Admin: 01/10/21 21:39 Dose: 650 mg Documented by: Albuterol/Ipratropium (Albuterol/Ipratropium 3.0-0.5 Mg/3 Ml Neb Soln) 3 ml NEB Q4HRRT PRN PRN Reason: Shortness Of Breath/wheezing Aspirin (Aspirin 81 Mg Tab.Chew) 81 mg PO DAILY [facility] Last Admin: 01/11/21 09:50 Dose: 81 mg Documented by: Atorvastatin Calcium (Atorvastatin 40 Mg Tab) 80 mg PO BEDTIME [facility] Last Admin: 01/10/21 21:40 Dose: 80 mg Documented by: Cephalexin (Cephalexin 500 Mg Cap) 500 mg PO TID [facility] Last Admin: 01/11/21 13:50 Dose: 500 mg Documented by: Clopidogrel Bisulfate (Clopidogrel 75 Mg Tab) 75 mg PO DAILY [facility] Last Admin: 01/11/21 09:50 Dose: 75 mg Documented by: Dextrose/Water (50% Dextrose In Water 50 Ml Syringe) 50 ml IVPUSH ASDIRECTED PRN PRN Reason: Hypoglycemia Glucagon (Glucagon,Human Recombinant 1 Mg Vial) 1 mg IM ASDIRECTED PRN PRN Reason: Hypoglycemia Lactated Ringer's (Ringers, Lactated) 1,000 mls @ 125 mls/hr IV ASDIRECTED [facility] Last Admin: 01/11/21 05:49 Dose: 125 mls/hr Documented by: Insulin Aspart (Insulin Aspart 100 Units/Ml 3 Ml Pen) 0 unit SUBCUT TIDAC WILMER; Protocol Last Admin: 01/11/21 12:52 Dose: 3 unit Documented by: Labetalol HCl (Labetalol 100 Mg/20 Ml Mdv) 10 mg IVPUSH Q4H PRN; Protocol PRN Reason: Hypertension Ondansetron HCl (Ondansetron 4 Mg/2 Ml Sdv) 4 mg IVPUSH Q4H PRN PRN Reason: Nausea/Vomiting Discontinued Medications Aspirin (Aspirin 81 Mg Tab.Chew) 324 mg PO ONETIME ONE Stop: 01/10/21 17:35 Last Admin: 01/10/21 17:48 Dose: 324 mg Documented by: Clopidogrel Bisulfate (Clopidogrel 75 Mg Tab) 75 mg PO ONETIME ONE Stop: 01/10/21 17:35 Last Admin: 01/10/21 17:48 Dose: 75 mg Documented by: Gadobenate Dimeglumine (Gadobenate Dimeglumine 529 Mg/Ml 20 Ml Sdv) 20 ml IVP [facility] ONETIME STA Stop: 01/11/21 07:21 Last Admin: 01/11/21 08:33 Dose: 16 ml Documented by: Lactated Ringer's (Ringers, Lactated) 1,000 mls @ 150 mls/hr IV ASDIRECTED [facility] Insulin Aspart (Insulin Aspart 100 Units/Ml 3 Ml Pen) 2 unit SUBCUT ONETIME ONE Stop: 01/10/21 23:18 Last Admin: 01/11/21 07:06 Dose: Not Given Documented by: Insulin Aspart (Insulin Aspart 100 Units/Ml 3 Ml Pen) Confirm Administered Dose 300 unit .ROUTE .STK-MED ONE Stop: 01/10/21 23:22 Last Admin: 01/10/21 23:32 Dose: 2 units Documented by: Iopamidol (Iopamidol 755 Mg/Ml 500 Ml Multipack Bottle) 100 ml IVPUSH ONETIME STA Stop: 01/10/21 17:01 Last Admin: 01/10/21 17:01 Dose: 100 ml Documented by:
[2021-01-11 15:50] VITALS: BP 158/74; PULSE 76
--- NOTE | 2021-01-13 11:34 | ECHO ---
EXAM DATE: 01/10/21 PATIENT'S AGE: 60 The ECHO report has been scanned into [employer] and can be seen in this patient's EMR (Electronic Medical Record) under the REPORTS section. The report has also been scanned into PACS. SANDY
== END 2021-01-11 17:00 | disposition home or self-care (01) ==
LOC: MW.ED 15:10 → MW.MS 18:05
PROVIDERS: ADMIT Student in an Organized Health Care Education/Training Program; ATTEND Student in an Organized Health Care Education/Training Program
DX: G45.9 Transient cerebral ischemic attack, unspecified (principal); I63.9 Cerebral infarction, unspecified; I10 Essential (primary) hypertension; E78.5 Hyperlipidemia, unspecified; E87.1 Hypo-osmolality and hyponatremia; E87.8 Other disorders of electrolyte and fluid balance, not elsewhere classified; E11.65 Type 2 diabetes mellitus with hyperglycemia; Z79.82 Long term (current) use of aspirin; Z79.899 Other long term (current) drug therapy; Z79.4 Long term (current) use of insulin; Z20.822 Contact with and (suspected) exposure to COVID-19
CPT/HCPCS: 36415; 70450; 70496; 70498; 70553; 80053; 80061; 82550; 82947; 83036; 84443; 84484; 85025; 85610; 87635; 93005; 93306; 97161; 99285; A9270; A9577; G0378; J1815; J7120; Q9967; U0002